=== PATIENT | male | born 1955 | race African-American/Black ===

== ENCOUNTER → 2017-09-07 | Outpatient (CLI) | payer OTHER | LOC: RAD 14:42 | DX: J18.9 Pneumonia, unspecified organism (principal); I51.7 Cardiomegaly; J98.11 Atelectasis ==

== ENCOUNTER → 2017-09-28 | Outpatient (CLI) | payer OTHER ==
[~2017-09-28] MED LIST: ALBUTEROL2.5 MG/31 INH; ASPIR 8181 MG PO; ATORVASTATIN CA40 MG PO; AUGMENTIN 875-1 EACH PO; CARVEDILOL3.125 MG PO; CARVEDILOL6.25 MG PO; CLOPIDOGREL75 MG PO; CORLANOR5 MG PO; COZAAR 50 MG TA50 M1 PO; ELIQUIS5 MG PO; FLOMAX0.4 MG PO; KLOR-CON 1010 MEQ PO; LASIX 20 MG TAB20 MG PO; LISINOPRIL5 MG PO; PACERONE 200 M200 M1 PO; PANTOPRAZOLE SO40 M1 PO; SINGULAIR 10 MG10 M1 PO; VENTOLIN HFA 1818 GM INH
--- NOTE | ~2017-09-28 | 2DMMODE ---
[facility] [place] [address] 2 D/M-MODE ECHOCARDIOGRAM Name: PIERCE GONZALEZ Room #: REG [facility]#: [id number] Admission: 09/28/17 Attend Phys: Herb Cooper MD Discharge: Date of : 53 Date of Service: 09/28/17 1541 Report #: [id number] THIS REPORT FOR: //name// APPROVED REPORT Study performed: 09/28/2017 14:21:40 EXAM: Comprehensive 2D, Doppler, and color-flow Echocardiogram Patient Location: Out-Patient Room #: Echo lab BSA: 2.33 HR: 106 bpm BP: 162/112 mmHg Other Information Study Quality: Good Indications Dyspnea Cardiomyopathy Hypertension/HDD 2D Dimensions RVDd: 45.10 mm LVEF(%): 29.71 (>50%) IVSd: 12.99 (7-11mm) LVOT Diam: 22.28 (18-24mm) LVDd: 59.00 mm PWd: 12.65 (7-11mm) Ascending Ao: 31.78 (22-36mm) LVDs: 50.63 (25-40mm) Aortic Root: 30.12 mm IVC: 30.00 mm Bills's LVEF: 29.71 % Volumes Left Atrial Volume (Systole) Single Plane 4CH: 102.66 mL Single Plane 2CH: 121.11 mL LA ESV Index: 55.00 mL/m2 Aortic Valve AoV Peak Edis.: 1.38 m/s AO Peak Gr.: 7.57 mmHg LVOT Max P.92 mmHg LVOT Max V: 0.99 m/s JILL Vmax: 2.80 cm2 Mitral Valve E/A Ratio: 6.8 [facility] [place] [address] 2 D/M-MODE ECHOCARDIOGRAM Name: PIERCE GONZALEZ Room #: REG [facility]#: [id number] Admission: 09/28/17 Attend Phys: Herb Cooper MD Discharge: Date of : 53 Date of Service: 09/28/17 1541 Report #: [id number] MV Decel. Time: 85.07 ms MV E Max Edis.: 1.56 m/s MV A Edis.: 0.23 m/s MV PHT: 24.67 ms IVRT: 58.82 ms Pulmonary Valve PV Peak Edis.: 0.74 m/s PV Peak Gr.: 2.19 mmHg OR End Vmax: 1.91 m/s Pulmonary Vein P Vein S: 0.45 m/s P Vein A: 0.12 m/s P Vein D: 0.52 m/s P Vein A Dur.: 53.6 msec P Vein S/D Ratio: 0.87 Tricuspid Valve TR Peak Edis.: 3.67 m/s TR Peak Gr.: 53.80 mmHg PA Pressure: 64.00 mmHg Left Ventricle Left ventricle is mildly dilated. Mild concentric left ventricular hypertrophy. Left ventricular ejection fraction is severely decreased. LVEF is 25-30%. Grade IV - fixed restrictive diastolic dysfunction. Right Ventricle Right ventricle is mildly dilated. Right ventricle is hypokinetic. Atria Left atrium is dilated. Right atrium is dilated. Aortic Valve The aortic valve is normal in structure. Trace aortic regurgitation. There is no aortic valvular stenosis. Mitral Valve The mitral valve is normal in structure. Mild to moderate mitral regurgitation. No evidence of mitral valve stenosis. Tricuspid Valve The tricuspid valve is normal in structure. There is mild tricuspid regurgitation. The right atrial pressure is estimated at mmHg. There is moderate-severe pulmonary hypertension. [address] [address] 2 D/M-MODE ECHOCARDIOGRAM Name: GONZALEZPIERCEMARYANN STAPLETON Room #: REG [facility]#: [id number] Admission: 09/28/17 Attend Phys: Herb Cooper MD Discharge: Date of : 53 Date of Service: 09/28/17 1541 Report #: [id number] Pulmonic Valve The pulmonary valve is normal in structure. Mild pulmonic regurgitation. Great Vessels The aortic root is normal in size. IVC is dilated and collapses <50% with inspiration. Pericardium There is no pericardial effusion. <Conclusion> Left ventricle is mildly dilated. Mild concentric left ventricular hypertrophy. Left ventricular ejection fraction is severely decreased. Grade IV - fixed restrictive diastolic dysfunction. Right ventricle is mildly dilated. Left atrium is dilated. Trace aortic regurgitation. Mild to moderate mitral regurgitation. There is moderate-severe pulmonary hypertension. There is no pericardial effusion. <ELECTRONICALLY SIGNED> By: Jevon Choi MD 09/28/17 1541 1541 1541 Jevon Choi MD /INF
== END ==
LOC: ULTRA 08:00 → RAD 08:00 → CV 08:00 → ULTRA 13:48 → EDSTATUS 14:52 → ULTRA 15:17
DX: R94.5 Abnormal results of liver function studies (principal); R06.09 Other forms of dyspnea; R60.9 Edema, unspecified; J45.909 Unspecified asthma, uncomplicated; R91.8 Other nonspecific abnormal finding of lung field

== ENCOUNTER 2017-10-03 15:13 | Inpatient (IN) | payer OTHER ==
[~2017-10-03] VITALS: Ht 172.7 cm; Wt 118.8 kg
[2017-10-03] VITALS (7 sets, daily range): BP systolic 122–156; BP diastolic 59–98
--- NOTE | ~2017-10-03 | 2DMMODE ---
[address] [address] 2 D/M-MODE ECHOCARDIOGRAM Name: GONZALEZPIERCE RAY Room #: 219-P [facility] IN M.R.#: [id number] Admission: 10/03/17 Attend Phys: Jose Manuel Ballard, Discharge: Date of : 53 Date of Service: 10/12/17 1410 Report #: [id number] THIS REPORT FOR: //name// APPROVED REPORT Study performed: 10/12/2017 13:22:00 EXAM: Comprehensive 2D, Doppler, and color-flow Echocardiogram Patient Location: Bedside Room #: 219 Status: routine BSA: 2.20 HR: 105 bpm Other Information Study Quality: Good Indications Congestive Heart Failure Cardiomyopathy Hypertension/HDD R^O thrombus Echo Enhancing Agent Indication: Rule out thrombus Agent(s) / Amount(s) Used: Optison 4 cc Left Ventricle Left ventricle is dilated. There is global hypokinesis of the left ventricle. Mild concentric left ventricular hypertrophy. Left ventricular ejection fraction is severely decreased. LVEF is 20-25%. Right Ventricle Right ventricle is dilated. Right ventricle is mildly hypokinetic. Atria Left atrium is dilated. Right atrium is dilated. Aortic Valve The aortic valve is normal in structure. Mitral Valve [address] [address] 2 D/M-MODE ECHOCARDIOGRAM Name: PIERCE GONZALEZ RAY Room #: 219-P ADM IN M.R.#: [id number] Admission: 10/03/17 Attend Phys: Jose Manuel Ballard, Discharge: Date of : 53 Date of Service: 10/12/17 141 Report #: [id number] The mitral valve is normal in structure. Tricuspid Valve The tricuspid valve is normal in structure. Pulmonic Valve The pulmonary valve is normal in structure. Great Vessels The aortic root is normal in size. IVC is not well visualized. Pericardium There is no pericardial effusion. <Conclusion> Left ventricle is dilated. Mild concentric left ventricular hypertrophy. Left ventricular ejection fraction is severely decreased. Right ventricle is dilated. Left atrium is dilated. The aortic valve is normal in structure. The mitral valve is normal in structure. There is no pericardial effusion. <ELECTRONICALLY SIGNED> By: Jevon Choi MD 10/12/171409 09 09 Jevon Choi MD /INF
--- NOTE | ~2017-10-03 | CATHLAB ---
[facility] [address] [address] INVASIVE PROCEDURE REPORT Name: URIEL GONZALEZ RAY Room #: 250-P [facility] IN .R.#: [id number] Admission: 10/03/17 Attend Phys: Jose Manuel Ballard, Discharge: Date of : 53 Date of Service: 10/11/17 0909 Report #: [id number] THIS REPORT FOR: //name// APPROVED REPORT Patient Details Patient Status: In-Patient Room #: The patient is a 62 year-old male Event Personnel Uriel Bee Nurses' Aide, Darius Vasques RN, Elizabeth Gonzalez Sandifer, David Monitor, Mireya Jasso RN progress man Performed Art Access - R femoral artery* Sony Access - R femoral vein BMS Place w/wo Plasty Single LAD [id number] BMSSINGLE [address] Primary Art Thrombect. Initial [id number] Right and Left Heart Cath w/Lt. Venogram 5046315 RLCWLV IABP Placement 6367004 IABPI Procedure Narrative The patient was brought emergently to the Cardiac Catheterization Laboratory and was prepped and draped in a sterile manner. The Right Groin^ was infiltrated with 1% Lidocaine subcutaneous anesthesia. A PINNACLE 6FR Sheath #[id number] sheath was inserted into the RFA 6FR.^. Coronary angiography was performed using coronary diagnostic catheters. The right coronary system was accessed and visualized with a JR 4 catheter. The left coronary system was accessed and visualized with a JL 4 catheter. The left ventricle was accessed and visualized with a Pigtail catheter. Fluoro Time: 15.21 minutes Dose: DAP 60480.00 cGycm2 2392 mGy Contrast Type and Amount: Visipaque 140 ml Hemodynamics The right atrial mean pressure is 27 mmHg. The right ventricular pressure is 60/15 mmHg. The pulmonary artery pressure is 53/37 mmHg with a mean of 44 mmHg. The mean pulmonary capillary wedge pressure is 40 mmHg. The aortic pressure is 83/57 mmHg with a mean of 69 mmHg. The left ventricular pressure is 84/22 mmHg with a mean of mmHg. The left ventricular end diastolic pressure is 31 mmHg. PCI Technique Lesion Anticoagulation was achieved with Heparin. Percutaneous coronary [facility] [address] [place] [address] INVASIVE PROCEDURE REPORT Name: URIEL GONZALEZ Room #: 250-P [facility] IN [facility]#: [id number] Admission: 10/03/17 Attend Phys: Jose Manuel Ballard, Discharge: Date of : 53 Date of Service: 10/11/17 0909 Report #: [id number] intervention was performed on the mid left anterior descending artery segment. The lesion stenosis prior to intervention was 100% with BRYAN flow. A LAUNCHER 6FR JL4.5 #[id number] Guide Catheter was used to engage the ostium. A Luge Wire .014 x 182CM #[id number] Interventional Guidewire was used to cross the lesion. BALLOON DILATION A Balloon catheter Sprinter OTW 2.75 x 20 #[id number] was inserted and inflated up to 10.00atm for 20seconds. Additional Inflation: 10.00atm for 12seconds. Additional Inflation: 12.00atm for 11seconds. STENT DEPLOYMENT A bare metal stent INTEGRITY RX 3.0 X 22 #[id number] was inserted and inflated up to 15.00atm for 20seconds. Conclusion #1 successful emergent PTCA stent bare metal of the proximal mid LAD occlusion with thrombectomy mechanical thrombectomy 0% residual and BRYAN grade 3 flow #2 circumflex OM is mildly diseased recently placed stent is patent with flow into the OM and valve filling of a distal OM circumflex which was not feeling on the intervention of yesterday. #3 successful placement of intra-aortic balloon pump for hypotension and hemodynamic support #4 Stock[place]-Aaron catheter placed for continuous monitoring purposes #5 moderately severe to severe global hypokinesis of the left ventricle EF 15-20% some contraction is noted the anterior base This case was initiated in cardiogenic shock emergently brought over from the ICU. Emergent intervention as described above with hemodynamic support was required with enteric balloon pump. Pressors including levo fed and addition of dopamine. Transfer back to the ICU and neck critical condition prognosis is extremely guarded. No urine output. Discussion and report of this procedure prognosis the patient discussed with the family. We'll continue ventilator and hemodynamic support. Will continue heparin and Integrilin on transfer to the ICU. Etiology of this clotting disorder is not readily apparent. Mid LAD had only mild disease on the cardiac catheterization of the prior day. Circumflex stent remained patent that was placed the prior day. With reconstitution of the distal OM circumflex branch. <ELECTRONICALLY SIGNED> By: Uriel Bee MD, FACC 10/11/17908 8 8 Uriel Bee MD, FACC /INF
--- NOTE | ~2017-10-03 | EKG ---
[address] [place] [address] ELECTROCARDIOGRAM REPORT Name: URIEL GONZALEZ Room #: 250-P ADM IN M.R.#: [id number] Admission: 10/03/17 Attend Phys: Jose Manuel Ballard MD Discharge: Date of : 53 Report #: [id number] THIS REPORT FOR: //name// [facility] Test Date: 2017-10-04 Test Time: 22:48:42 Pat Name: URIEL GONZALEZ Department: Room: 250 P Gender: M Medical Front Desk Coordinator: UNK : 1955 Requested By: Uriel Bee Order Number: [id number] MD: Jenaro Guillermo Measurements Intervals [place] Rate: 115 P: 217 SC: 95 QRS: 82 QRSD: 176 T: 263 QT: 390 QTc: 540 Interpretive Statements Sinus tachycardia Left bundle branch block Baseline wander in lead(s) I,II,aVR Compared to ECG 10/04/2017 06:17:19 No significant change was found Electronically Signed On 10-05-2017 15:54:36 CHIEF LIBRARIAN EXTENSION DEPARTMENT by Jenaro Guillermo [email or web address] <ELECTRONICALLY SIGNED> By: Jenaro Guillermo MD, [facility] 10/05/17 1554 2248 2248 Jenaro Guillermo MD, [facility] /EPI
--- NOTE | ~2017-10-03 | EKG ---
[address] [place] [address] ELECTROCARDIOGRAM REPORT Name: PIERCE GONZALEZ Room #: 170-8 ADM IN M.R.#: [id number] Admission: 10/03/17 Attend Phys: Jose Manuel Ballard MD Discharge: Date of : 53 Report #: [id number] THIS REPORT FOR: //name// [facility] ED Test Date: 2017-10-03 Test Time: 15:33:06 Pat Name: PIERCE GONZALEZ Department: Room: 170 Gender: M Vp Integration: SADAF : 1955 Requested By: Ella Smith Order Number: [id number] MD: Jenaro Guillermo Measurements Intervals [place] Rate: 98 P: 81 NC: 170 QRS: 107 QRSD: 170 T: 119 QT: 415 QTc: 530 Interpretive Statements Sinus rhythm Left bundle branch block Compared to ECG 02/10/1995 12:48:00 No significant change was found Electronically Signed On 10-03-2017 17:06:30 ASSEMBLY LINE LEADER by Jenaro Guillermo [email or web address] <ELECTRONICALLY SIGNED> By: Jenaro Guillermo MD, [facility] 10/03/17 1706 1533 153 Jenaro Guillermo MD, FAC /EPI
--- NOTE | ~2017-10-03 | EKG ---
[address] [place] [address] ELECTROCARDIOGRAM REPORT Name: URIEL GONZALEZ Room #: 250-P ADM IN M.R.#: [id number] Admission: 10/03/17 Attend Phys: Jose Manuel Ballard MD Discharge: Date of : 53 Report #: [id number] THIS REPORT FOR: //name// [facility] Test Date: 2017-10-04 Test Time: 22:49:30 Pat Name: URIEL GONZALEZ Department: Room: 250 P Gender: M Electric Shipyard Operator: UNK : 1955 Requested By: Uriel Bee Order Number: [id number] MD: Jenaro Guillermo Measurements Intervals [place] Rate: 113 P: 0 TX: 122 QRS: 83 QRSD: 169 T: 259 QT: 422 QTc: 579 Interpretive Statements Sinus tachycardia Left bundle branch block Compared to ECG 10/04/2017 06:17:19 No significant change was found Electronically Signed On 10-05-2017 15:54:56 PIANO MAKER by Jenaro Guillermo [email or web address] <ELECTRONICALLY SIGNED> By: Jenaro Guillermo MD, [facility] 10/05/17 1554 2249 2249 Jenaro Guillermo MD, [facility] /EPI
--- NOTE | ~2017-10-03 | HC ---
[facility] [place] [address] CONSULTATION Name: PIERCE GONZALEZ PIETER Room #: 208-[facility] IN .R.#: [id number] Admission: 10/03/17 Attend Phys: Jose Manuel Ballard MD Discharge: Date of : 53 Report #: [id number] THIS REPORT FOR: //name// CC: Jevon Ballard DATE OF SERVICE: 10/03/2017 INDICATION: Anginal equivalent. HISTORY OF PRESENT ILLNESS: This is a 62-year-old gentleman presenting with acute onset of left-sided upper back pain. He was recently diagnosed with cardiomyopathy, ejection fraction in the 25-30% range. He has class 2-3 heart failure symptoms. He also has a history of hypertension, edema, asthma and left bundle-branch block. He was scheduled for elective cardiac catheterization tomorrow morning. He had been in his usual state of health until he developed this discomfort. The ECG reveals a left bundle-branch block. However, the first troponin is positive at 1.59. He is diaphoretic and continues to have this discomfort localized to the left upper back area. He denies any chest pain, nausea, diarrhea or tingling. PAST MEDICAL HISTORY: History of hypertension, asthma, edema, left bundle-branch block newly diagnosed with cardiomyopathy. ALLERGIES: None. CURRENT MEDICATIONS: Include Entresto, albuterol inhaler, Lasix 20 mg daily, potassium, aspirin and carvedilol. SOCIAL HISTORY: Negative for tobacco use. FAMILY HISTORY: Negative for premature CAD. REVIEW OF SYSTEMS: A full 10-point review of systems performed. Only the pertinent positives and negatives as described in the HPI. PHYSICAL EXAMINATION: VITAL SIGNS: Blood pressure 118/70, heart rate is 90 beats per minute. GENERAL APPEARANCE: An overweight male in mild respiratory. HEAD AND EYES: Normocephalic. Sclerae are anicteric. ENT: Oral mucosa moist. NECK: Supple. LUNGS: Clear to auscultation. CARDIAC: Regular rate and rhythm, S1, S2 positive. ABDOMEN: Protuberant, soft. EXTREMITIES: No cyanosis, positive for edema. [facility] [address] [place] [address] CONSULTATION Name: LISAPIERCE BROOKLYN Room #: [address] [place] [address] IN M.R.#: [id number] Admission: 10/03/17 Attend Phys: Jose Manuel Ballard MD Discharge: Date of : 53 Report #: [id number] ECG reveals sinus rhythm, left bundle-branch block. LABORATORY VALUES: White count is 5.7, hemoglobin is 12.6. Sodium is 145, creatinine is 1.4. Troponin is 1.59. IMPRESSION AND PLAN: 1. Acute coronary syndrome, positive troponin. We will need an urgent cardiac catheterization in view of ongoing discomfort. 2. Cardiomyopathy, appears to be stable. Continue with medications. 3. Hypertension. Blood pressure is controlled on the current regimen. 4. Edema. Continue with diuretic therapy. 5. Asthma. Continue with inhalers. <ELECTRONICALLY SIGNED> By: Jevon Choi MD 10/04/17 0802 1653 0032 Jevon Choi MD /nt
--- NOTE | ~2017-10-03 | CATHLAB ---
[facility] [place] [address] INVASIVE PROCEDURE REPORT Name: LISAPIERCE PIETER Room #: 208-P ADM IN ..#: [id number] Admission: 10/03/17 Attend Phys: Jose Manuel Ballard, Discharge: Date of : 53 Date of Service: 10/04/17 0952 Report #: [id number] THIS REPORT FOR: //name// APPROVED REPORT Patient Details Patient Status: In-Patient Room #: The patient is a 62 year-old male Event Personnel Jevon Choi Account Support Associate, Aleksandar Macario RN RN, Darius Vasques RN, Elizabeth Gonzalez [place], Christine RTR Monitor, Ina Winkler CVT Monitor Procedures Performed Art Access - R femoral artery* Hemostasis w/ Mynx Left Heart Cath w/or w/o Coronaries [id number] [facility] w/wo Plasty Single CIRC 865567 41447 Initial Mod Sed Same Phys/QHP Gr5y 627742 90744 Mod Sed Same Phys/QHP Ea 585938 27494 Mod Sed Same Phys/QHP Ea 435877 Indication Non-STEMI , Dyspnea, Cardiomyopathy, Chest pain Risk Factors Hypercholesterolemia, Hypertension Previous Procedures/Diagnoses Previous CHF Procedure Narrative The Right Groin^ was infiltrated with 1% Lidocaine subcutaneous anesthesia. A PINNACLE 5FR Sheath #[id number] sheath was inserted into the RFA^. Coronary angiography was performed using coronary diagnostic catheters. The right coronary system was accessed and visualized with a 5FR AL1 #[id number] catheter. The left coronary system was accessed and visualized with a JL4 catheter. Left ventricular/Aortic Valve gradient assessed via catheter pullback. Closure device was deployed with a 6 Fr MYNXGRIP 6/7F #[id number]. The patient tolerated the procedure well and there were no complications associated with the procedure. There was no hematoma. Intraoperative Conscious Sedation Sedation start time: 17:03 Case end Time: 18:03 [facility] [address] [place] [address] INVASIVE PROCEDURE REPORT Name: LISAPIERCE PIETER Room #: 208-P [facility] IN [facility].#: [id number] Admission: 10/03/17 Attend Phys: Jose Manuel Ballard, Discharge: Date of : 53 Date of Service: 10/04/17 0952 Report #: [id number] Versed 1.5 mg Fluoro Time: 16.20 minutes Dose: DAP 79588.69 cGycm2 2679 mGy Contrast Type and Amount: Omnipaque 210 ml Coronary Angiography The patient's coronary anatomy is co- dominant. Diagnostic Cath Left Main Patent vessel, with no flow-limiting lesions. LAD Moderate to large size caliber vessel, traveling down the anterior wall and wrapping around the apex. There are no flow-limiting lesions in the LAD. Diagonal 1 Moderate size caliber vessel, with no flow-limiting lesions. Circumflex Codominant vessel, has a severe obstruction in the proximal segment, at least 95%. OM1 Patent vessel, with no flow-limiting lesions. 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 There is only mild disease in the proximal segment, 20%. R PDA Patent vessel, with no flow-limiting lesions. Left Ventriculography Left Ventriculography was not performed. Ejection Fraction was 25-30% based off patient's Echocardiogram. An LVEDP was measured, there is no gradient across the outflow tract. Hemodynamics The aortic pressure is 127/85 mmHg with a mean of 108 mmHg. The left ventricular pressure is 127/27 mmHg with a mean of mmHg. The left ventricular end diastolic pressure is 43 mmHg. PCI Technique Lesion Anticoagulation was achieved with Angiomax. Patient was preloaded with Brillinta. Percutaneous coronary intervention was performed on the proximal circumflex artery segment. The lesion stenosis prior to intervention was 99% with BRYAN 2 flow. A LAUNCHER 6FR JL4.5 #[id number] Guide Catheter was used to engage the LCA ostium. A Luge Wire .014 X 182CM #[id number] Interventional Guidewire was used to cross the lesion. BALLOON DILATION A Balloon catheter Euphora RX 3.0 x 10 #[id number] was inserted and inflated up to 8.00atm for 10seconds. Additional Inflation: 8.00atm [facility] [address] [place] [address] INVASIVE PROCEDURE REPORT Name: PIERCE GONZALEZ Room #: 208-P [facility] IN .R.#: [id number] Admission: 10/03/17 Attend Phys: Jose Manuel Ballard, Discharge: Date of : 53 Date of Service: 01/951 Report #: [id number] for 13seconds. STENT DEPLOYMENT A drug-eluting stent RESOLUTE RX 3.5 X 15 #[id number] was inserted and inflated up to 10.00atm for 10seconds. Additional Inflation: 10.00atm for 3seconds. Additional Inflation: 14.00atm for 17seconds. Conclusion 1. Successful insertion of a drug-eluting stent into the proximal segment of the left circumflex artery. 2. 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 3. Mixed type cardiomyopathy, severe. 4. Recommend dual antiplatelet therapy. <ELECTRONICALLY SIGNED> By: Jevon Choi MD 10/04/1752 1 1 Jevon Choi MD /INF
--- NOTE | ~2017-10-03 | EKG ---
[address] [place] [address] ELECTROCARDIOGRAM REPORT Name: URIEL GONZALEZ Room #: 250-P ADM IN M.R.#: [id number] Admission: 10/03/17 Attend Phys: Jose Manuel Ballard MD Discharge: Date of : 53 Report #: [id number] THIS REPORT FOR: //name// [facility] Test Date: 2017-10-05 Test Time: 06:23:57 Pat Name: URIEL GONZALEZ Department: Room: 250 P Gender: M Clinical Team Lead: PARMJIT : 1955 Requested By: Uriel Bee Order Number: [id number] MD: Jenaro Guillermo Measurements Intervals [place] Rate: 84 P: 75 [place]: 177 QRS: 106 QRSD: 156 T: 98 QT: 445 QTc: 527 Interpretive Statements Sinus rhythm Atrial premature complex Left bundle branch block Anterolateral infarct, age indeterminate Compared to ECG 10/04/2017 06:17:19 Atrial premature complex(es) now present Primary ST and T wave abnormality no longer present Electronically Signed On 10-05-2017 16:01:03 MIXING ENGINEER by Jenaro Guillermo [email or web address] <ELECTRONICALLY SIGNED> By: Jenaro Guillermo MD, [facility] 10/05/17 1601 0623 0623 Jenaro Guillermo MD, [facility] /EPI
--- NOTE | ~2017-10-03 | EKG ---
[place] [address] [facility] [place] [address] ELECTROCARDIOGRAM REPORT Name: URIEL GONZALEZ Room #: 250-P ADM IN M.R.#: [id number] Admission: 10/03/17 Attend Phys: Jose Manuel Ballard MD Discharge: Date of : 53 Report #: [id number] THIS REPORT FOR: //name// [facility] Test Date: 2017-10-05 Test Time: 01:19:49 Pat Name: URIEL GONZALEZ Department: Room: 250 P Gender: M Tool Designer: sandeep : 1955 Requested By: Uriel Bee Order Number: [id number] MD: Jenaro Guillermo Measurements Intervals [place] Rate: 101 P: 77 VA: 138 QRS: 80 QRSD: 163 T: -27 QT: 414 QTc: 537 Interpretive Statements Sinus tachycardia Left bundle branch block Primary ST and T wave abnormality, consider injury pattern Compared to ECG 10/04/2017 06:17:19 Myocardial infarct finding now present Electronically Signed On 10-05-2017 15:58:39 INTEGRATION ANALYST by Jenaro Guillermo [email or web address] <ELECTRONICALLY SIGNED> By: Jenaro Guillermo MD, [facility] 10/05/17 1558 0119 0119 Jenaro Guillermo MD, [facility] /EPI
--- NOTE | ~2017-10-03 | EKG ---
[address] [place] [address] ELECTROCARDIOGRAM REPORT Name: PIERCE GONZALEZ Room #: 208-P ADM IN M.R.#: [id number] Admission: 10/03/17 Attend Phys: Jose Manuel Ballard MD Discharge: Date of : 53 Report #: [id number] THIS REPORT FOR: //name// [facility] Test Date: 2017-10-03 Test Time: 19:10:25 Pat Name: PIERCE GONZALEZ Department: Room: 208 P Gender: M Clearing Supervisor: Kayleigh BERMUDEZ : 1955 Requested By: Jevon Choi Order Number: [id number] MD: Roland Smith Measurements Intervals [place] Rate: 102 P: 69 [place]: 157 QRS: 74 QRSD: 159 T: 265 QT: 412 QTc: 537 Interpretive Statements Sinus tachycardia Probable left atrial enlargement IVCD, consider atypical LBBB Compared to ECG 10/03/2017 15:33:06 Sinus rhythm no longer present Electronically Signed On 10-04-2017 7:45:41 HIGH SCHOOL FOREIGN LANGUAGE TEACHER by Roland Smith [email or web address] <ELECTRONICALLY SIGNED> By: Roland Smith MD 10/04/17 0745 09 09 Roland Smith MD /EPI
--- NOTE | ~2017-10-03 | HC ---
[facility] [place] [address] CONSULTATION Name: PIERCE GONZALEZ PIETER Room #: 219-P [facility] IN M.R.#: [id number] Admission: 10/03/17 Attend Phys: Jose Manuel Ballard MD Discharge: 10/15/17 Date of : 53 Report #: [id number] THIS REPORT FOR: //name// CC: Jevon Ballard DATE OF SERVICE: 10/11/2017 HISTORY OF PRESENT ILLNESS: The patient is a 62-year-old -[place] male who was noted to have shortness of breath and some left upper back pain. He was actually diagnosed with a non-ST elevation CO. He underwent stenting of the LAD and circumflex. His course has been complicated by a cardiac arrest on 10/04/2016 with ventricular fibrillation. He was intubated, noted to have acute respiratory failure, acute renal failure. He needed to have a flexible cystoscopy to place a urinary catheter. He has had UTI with enterococcus and a GI bleed with p.o. Protonix. He had cardiogenic shock. He continues in the ICU and is gradually improving. We are seeing him in rehabilitation medicine consultation. PAST MEDICAL HISTORY: Asthma and coronary artery disease. HABITS: Former tobacco abuse, quit 8 years ago. No history of alcohol abuse. MEDICATIONS: Please see the full medication listing. ALLERGIES: No known drug allergies. SOCIAL HISTORY: Lives in a house with his . 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 There are no steps into the house. REVIEW OF SYSTEMS: Did not offer any current complaints of chest pain, shortness of breath or abdominal discomfort. No focal extremity pain complaints. PHYSICAL EXAMINATION: GENERAL: A 62-year-old -[place]ian male in no obvious distress. VITAL SIGNS: Last recorded temperature is 98.5, pulse 103, respirations 19, blood pressure 95/66. NEUROLOGIC: He is a pleasant, overweight -[place]ian male. Facies appeared symmetric. He did not appear to recognize me at first, but then recognized me later. EOMs are full. He has a functional range of motion of both upper extremities with strength grade 4-/5. DTRs are trace to 1. He has the indwelling Valdez catheter. Lower extremities, no focal calf swelling, functional range of motion, strength is grade 3+/5. DTRs are trace to 1. He was sit to stand, min assist, gait 100 feet contact guard with a front-wheeled [facility] [address] [place] [address] CONSULTATION Name: PIERCE GONZALEZ [place] Room #: 219-P [facility] IN .R.#: [id number] Admission: 10/03/17 Attend Phys: Jose Manuel Ballard MD Discharge: 10/15/17 Date of : 53 Report #: [id number] walker. ASSESSMENT: A 62-year-old -Belarusian male with the following problems: 1. ST elevation myocardial infarction, status post stent to left anterior descending and circumflex. 2. Status post cardiac arrest on 10/04/2017, ventricular fibrillation. 3. Acute respiratory failure, improved. 4. Acute renal failure, improved. 5. Shock liver. 6. Cardiogenic shock. 7. Cardiomyopathy. 8. Urinary retention with flexible cystoscopy, to place urinary catheter. 9. Question if there is a hypoxic encephalopathic component. PLAN: Therapies are continuing to work with him. Agree he certainly could be a candidate for a short acute in-hospital inpatient rehabilitation stay as he further medically stabilizes. At this point, we will continue to follow along with you regarding his rehab therapy needs. <ELECTRONICALLY SIGNED> By: Mandeep Guerra MD 10/17/17 1226 1552 0048 Mandeep Guerra MD /[facility]
--- NOTE | ~2017-10-03 | HC ---
[facility] [place] [address] CONSULTATION Name: PIERCE GONZALEZ PIETER Room #: 250-P [facility] IN M.R.#: [id number] Admission: 10/03/17 Attend Phys: Jose Manuel Ballard MD Discharge: Date of : 53 Report #: [id number] THIS REPORT FOR: //name// CC: Jevon Ballrad REASON FOR CONSULTATION: Acute kidney injury. REASON FOR THE PRESENTATION: Chest pain. HISTORY OF PRESENT ILLNESS: A 62-year-old with known advanced cardiomyopathy with an ejection fraction of around 20%. He is also known to have coronary artery disease. No known previous kidney problems. He presented to Dr. Ballard's office on Tuesday reporting that he has not been feeling well and was taken to the Emergency Room. Incidentally, the patient was supposed to have an angiogram on Tuesday. He reported to the Emergency Room that he has been having some issues with dyspnea on exertion. He also reported mild central chest pain with radiation to the upper back area starting about 20 minutes before his presentation to the Emergency Room. No prior similar episode. He was diaphoretic on his presentation. Initial troponin was 1.59 with a creatinine of 1.4. He was admitted to the CCU for further evaluation and management. Accordingly, he was managed as a case of coronary artery disease and was supposed to go for the landscaping and groundskeeping laborer on Tuesday. Unfortunately, the patient's condition deteriorated. He developed lactic acidosis and troponin peaked at more than 200. Code blue event was initiated. The patient was found in a cardiac arrest. He was shocked for VFib and an ACLS protocol was initiated. Three rounds of epinephrine were given before ROSC. Amiodarone was also given. He was intubated. The patient was taken to the landscaping and groundskeeping laborer and the details of the cath labs are documented. He did have a drug-eluting stent into the proximal left circumflex and the patient was then transferred to the ICU with dual antiplatelet therapy; however, his creatinine has gone up and he quit making urine mandating a renal consultation. PAST MEDICAL HISTORY: 1. Coronary artery disease. 2. Hypertension. 3. Cardiomyopathy with ejection fractions of around 25%. ALLERGIES: None. MEDICATIONS: Entresto, albuterol, Lasix, aspirin, carvedilol. SOCIAL HISTORY: No drug or alcohol abuse. 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 FAMILY HISTORY: No known coronary artery disease. [facility] [address] [place] [address] CONSULTATION Name: PIERCE GONZALEZ PIETER Room #: 250-P [facility] IN [facility]#: [id number] Admission: 10/03/17 Attend Phys: Jose Manuel Ballard MD Discharge: Date of : 53 Report #: [id number] REVIEW OF SYSTEMS: Unobtainable given the patient's mental status. PHYSICAL EXAMINATION: GENERAL: The patient is currently intubated with intraaortic balloon pump. VITAL SIGNS: Blood pressure 115/67, pulse rate 87. HEAD AND NECK: ET tube in place. CHEST: Decreased air entry bilaterally with crackles. CARDIOVASCULAR: Regular with no rub. ABDOMEN: Soft, nontender. LOWER EXTREMITIES: +1 edema. LABORATORY DATA: Reviewed, pH 7.4, pCO2 of 36. Lactate is down to 2.2. It peaked at 6. Troponin is greater than 200. White blood cell count 10.7, hemoglobin 12.5, platelet 298. Sodium 141, potassium 3.9, BUN 36, creatinine 2.5, glucose 185. IMAGING: Chest x-ray reviewed, mild pulmonary congestion. ASSESSMENT, IMPRESSION AND PLAN: 1. Status post cardiac arrest. 2. Acute kidney injury. 3. Cardiomyopathy. 4. Status post intubation for respiratory failure. 5. Lactic acidosis. 6. Acute coronary event with drug-eluting stent placement. The patient is in acute tubular necrosis due to his event. I will initiate appropriate workup. 1. Continue with the aggressive hemodynamic support including pressors and intraaortic balloon pump. He is currently intubated with no issues of fluid overload. His electrolytes are okay for now; however, I will need to check stat labs. 2. Lactate and blood gas have normalized. 3. IV fluids. 4. Lasix drip. 5. Usual treatment for his acute coronary event. 6. If there is no improvement in his parameters and he is still not making urine, I will initiate CRRT in the next 24 hours. <ELECTRONICALLY SIGNED> By: Darrell Hurd MD 10/10/17 0832 1011 1115 Darrell Hurd MD /nt
--- NOTE | ~2017-10-03 | EKG ---
[address] [address] ELECTROCARDIOGRAM REPORT Name: GONZALEZPIERCEMARYANN STAPLETON Room #: 250-P ADM IN M.R.#: [id number] Admission: 10/03/17 Attend Phys: Jose Manuel Ballard MD Discharge: Date of : 53 Report #: [id number] THIS REPORT FOR: //name// [facility] Test Date: 2017-10-11 Test Time: 09:33:54 Pat Name: PIERCE GONZALEZ Department: Room: 250 P Gender: M Sanitation Lead: PARMJIT : 1955 Requested By: Jevon Choi Order Number: [id number] MD: Roland Smith Measurements Intervals [place] Rate: 103 P: 29 VA: 142 QRS: 49 QRSD: 170 T: -24 QT: 412 QTc: 540 Interpretive Statements Sinus tachycardia Probable left atrial enlargement LBBB Electronically Signed On 10-11-2017 15:15:24 AUTOMATIC SPINNING LATHE OPERATOR by Roland Smith [email or web address] <ELECTRONICALLY SIGNED> By: Roland Smith MD 10/11/17 1515 0933 2 MD ANN Perez
--- NOTE | ~2017-10-03 | HC ---
[facility] [place] [address] CONSULTATION Name: PIERCE GONZALEZ Room #: 250-P [facility] IN M.R.#: [id number] Admission: 10/03/17 Attend Phys: Jose Manuel Ballard MD Discharge: Date of : 53 Report #: [id number] THIS REPORT FOR: //name// CC: Jevon Ballard MD DATE OF SERVICE: 10/05/2017 REFERRING PROVIDER: Jose Manuel Ballard MD REASON FOR CONSULTATION: Respiratory failure. CHIEF COMPLAINT: Chest pain, cardiopulmonary arrest. HISTORY OF PRESENT ILLNESS: Our group was asked to see the patient in consultation while hospitalized in [facility], discussed with nursing extensively. He is a 62-year-old male, unable to give any history due to being on mechanical ventilatory support at this time, presented on 10/03 with complaints of upper back and chest pain, underwent a procedure with drug-eluting stent placed in the proximal left circumflex artery. He had an ejection fraction between 25%-30%. Subsequently, last night developed ventricular tachycardia, ventricular fibrillation, required CPR and defibrillation x 3, was taken to the labor contractor where a stent to the LAD was placed. The patient has been on mechanical ventilatory support since that time and sedated. ALLERGIES: None known. PAST MEDICAL HISTORY: 1. Coronary artery disease. 2. History of possible asthma by report. 3. Hypertension. 4. Cardiomyopathy. OUTPATIENT MEDICATIONS: Included Entresto, albuterol, Lasix, potassium, aspirin and carvedilol. SOCIAL HISTORY: Unobtainable. FAMILY HISTORY: Unobtainable. REVIEW OF SYSTEMS: Unobtainable due to his current neurologic status. PHYSICAL EXAMINATION: VITAL SIGNS: Afebrile, pulse 80s, respiratory rate 16, blood pressure 115/67. [facility] [address] [place] [address] CONSULTATION Name: PIERCE GONZALEZ HAZELHURST Room #: 250-P [facility] IN ..#: [id number] Admission: 10/03/17 Attend Phys: Jose Manuel Ballard MD Discharge: Date of : 53 Report #: [id number] GENERAL: This is an obese, middle-aged black male, unresponsive. EENT: Reveals pupils equal, round, react to light. No scleral icterus. Endotracheal tube in place. LUNGS: Relatively clear. CARDIOVASCULAR: Heart was regular. No murmurs noted. ABDOMEN: Obese, soft, nontender, no masses. EXTREMITIES: Revealed right femoral arterial sheath with balloon pump and [place] catheter in place with 1+ regular and left lower extremity edema. LABORATORY DATA: Sodium 141, potassium 3.9, chloride 106, bicarbonate 26, BUN 36, creatinine 2.5, glucose 185. Troponin greater than 200. Arterial blood gas on assist control, tidal volume of 600, PEEP of 5, FiO2 100%, rate of 16, revealed pH 7.45, pCO2 of 36, pO2 500, bicarbonate 24. INR is 1.1. Chest x-ray shows [place]-A[place] catheter in good position in the left pulmonary artery. Minimal basilar atelectasis and pulmonary edema noted. Lungs reasonably clear on chest radiograph. IMPRESSION: 1. Status post cardiac arrest, associated ventricular fibrillation, ventricular tachycardia. 2. Coronary artery disease, status post stent to left anterior descending and circumflex. 3. Respiratory failure due to the above. 4. Possible history of asthma. SUGGESTIONS: 1. Albuterol p.r.n. 2. No ventilator weaning until the patient is alert neurologically. 3. Hypothermia protocol on hold due to the patient's hemodynamic instability and hypotension, currently requiring pressors with Levophed, dopamine as well as being coagulopathic at this time. 4. Follow up arterial blood gas after decreasing minute volume settings on the ventilator. 5. Additional recommendations to follow. Discussed with nursing at the bedside. <ELECTRONICALLY SIGNED> By: Fam Olson MD 10/05/17 1818 0929 1014 Fam Olson MD /nt
--- NOTE | ~2017-10-03 | EKG ---
[address] [place] [place] [address] ELECTROCARDIOGRAM REPORT Name: GONZALEZPIERCEMARYANN STAPLETON Room #: 170-8 ADM IN M.R.#: [id number] Admission: 10/03/17 Attend Phys: Jose Manuel Ballard MD Discharge: Date of : 53 Report #: [id number] THIS REPORT FOR: //name// [facility] ED Test Date: 2017-10-03 Test Time: 15:14:45 Pat Name: PIERCE GONZALEZ Department: Room: 170 Gender: M Managed Services Sales Consultant: NICK : 1955 Requested By: Ella Smith Order Number: [id number] MD: Jenaro Guillermo Measurements Intervals [place] Rate: 94 P: 72 MS: 173 QRS: 71 QRSD: 171 T: 146 QT: 397 QTc: 497 Interpretive Statements Sinus rhythm Left bundle branch block Compared to ECG 02/10/1995 12:48:00 Left bundle branch block is now present Electronically Signed On 10-03-2017 17:02:38 FUNCTIONAL SKILLS TUTOR by Jenaro Guillermo [email or web address] <ELECTRONICALLY SIGNED> By: Jenaro Guillermo MD, [facility] 10/03/171701 1514 1514 Jenaro Guillermo MD, [facility] /EPI
--- NOTE | ~2017-10-03 | EKG ---
[address] [place] [address] ELECTROCARDIOGRAM REPORT Name: URIEL GONZALEZ Room #: 250-P ADM IN M.R.#: [id number] Admission: 10/03/17 Attend Phys: Jose Manuel Ballard MD Discharge: Date of : 53 Report #: [id number] THIS REPORT FOR: //name// [facility] Test Date: 2017-10-04 Test Time: 22:57:04 Pat Name: URIEL GONZALEZ Department: Room: 250 P Gender: M Drop Hammer Setter Up: UNK : 1955 Requested By: Uriel Bee Order Number: [id number] MD: Jenaro Guillermo Measurements Intervals [place] Rate: 106 P: 0 [place]: 122 QRS: 87 QRSD: 167 T: 264 QT: 458 QTc: 609 Interpretive Statements Sinus tachycardia Left bundle branch block Compared to ECG 10/04/2017 06:17:19 No significant change was found Electronically Signed On 10-05-2017 15:55:43 WELDING MACHINE OPERATOR GAS by Jenaro Guillermo [email or web address] <ELECTRONICALLY SIGNED> By: Jenaro Guillermo MD, [facility] 10/05/17 1555 56 56 Jenaro Guillermo MD, [facility] /EPI
--- NOTE | ~2017-10-03 | EKG ---
[address] [place] [address] ELECTROCARDIOGRAM REPORT Name: PIERCE GONZALEZ Room #: 208-P ADM IN M.R.#: [id number] Admission: 10/03/17 Attend Phys: Jose Manuel Ballard MD Discharge: Date of : 53 Report #: [id number] THIS REPORT FOR: //name// [facility] Test Date: 2017-10-04 Test Time: 06:17:19 Pat Name: PIERCE GONZALEZ Department: Room: 208 P Gender: M Performance Improvement Manager: PARMJIT : 1955 Requested By: Jevon Choi Order Number: [id number] MD: Roland Smith Measurements Intervals [place] Rate: 101 P: 67 [place]: 169 QRS: 65 QRSD: 158 T: 265 QT: 419 QTc: 544 Interpretive Statements Sinus tachycardia Probable left atrial enlargement IVCD, consider atypical LBBB Compared to ECG 10/03/2017 15:33:06 Sinus rhythm no longer present Electronically Signed On 10-04-2017 7:49:33 PIPE FITTER SUPERVISOR by Roland Smith [email or web address] <ELECTRONICALLY SIGNED> By: Roland Smith MD 10/04/17 0749 6 6 Roland Smith MD /[facility]
[2017-10-03 15:33] LABS: ABSOLUTE NEUTROPHILS 3.3 thou/uL (1.4-8.2); HEMOGLOBIN 12.6 gm/dL (14.0-18.0); LYMPHOCYTES 30.9 % (24.0-44.0); MCHC 33.1 g/dL (28.0-37.0); MCV 93.5 fL (80.0-100.0); MONOCYTES 8.6 % (1.0-8.0); PLATELET COUNT 298 thou/uL (150-400); POLYS 58.5 % (36.0-66.0); RBC 4.07 mil/uL (4.50-6.00); RDW 14.6 % (10.5-14.5); WBC 5.7 thou/uL (4.0-11.0)
[2017-10-03 15:50] LABS: CREATININE 1.4 mg/dL (0.7-1.3); POTASSIUM 4.4 mmol/L (3.5-5.1)
[2017-10-03 16:01] LABS: TROPONIN-I 1.59 ng/mL (<0.06)
[2017-10-03 16:12] LABS: APTT 24.6 Seconds (24.5-32.8); PROTIME 10.7 Seconds (9.3-11.4)
[2017-10-03 16:23] LABS: ALBUMIN 2.8 g/dL (3.4-5.0); DIRECT BILIRUBIN 0.2 mg/dL (<0.1-0.3); TOTAL BILIRUBIN 0.5 mg/dL (<0.1-1.0); TOTAL PROTEIN 6.1 g/dL (6.4-8.2)
[2017-10-04] VITALS (7 sets, daily range): BP systolic 117–155; BP diastolic 42–112
[2017-10-04] MEDS ORDERED: LISINOPRIL5 MG PO (01:31)
[2017-10-04 03:15] LABS: HEMATOCRIT 43.3 % (42.0-52.0); HEMOGLOBIN 13.9 gm/dL (14.0-18.0); MCH 30.6 pg (26.0-34.0); MCHC 32.1 g/dL (28.0-37.0); MCV 95.4 fL (80.0-100.0); RBC 4.54 mil/uL (4.50-6.00); RDW 14.9 % (10.5-14.5); WBC 6.5 thou/uL (4.0-11.0)
[2017-10-04 03:35] LABS: ANION GAP 10 mmol/L (7-16); BUN 27 mg/dL (7-18); CALCIUM 8.7 mg/dL (8.5-10.1); CHLORIDE 105 mmol/L (98-107); CO2 24 mmol/L (21-32); CREATININE 1.4 mg/dL (0.7-1.3); GLUCOSE 193 mg/dL (74-106); POTASSIUM 4.1 mmol/L (3.5-5.1); SODIUM 139 mmol/L (136-145)
[2017-10-04 03:52] LABS: TROPONIN-I > 200.00 ng/mL (<0.06)
[2017-10-04] MEDS ORDERED: CARVEDILOL3.125 MG PO (03:59)
[2017-10-04] MEDS ORDERED: LASIX 20 MG TAB20 MG PO (04:00)
[2017-10-04] MEDS ORDERED: KLOR-CON 1010 MEQ PO (04:00)
[2017-10-04] MEDS ORDERED: SINGULAIR 10 MG10 M1 PO (04:01)
[2017-10-04] MEDS ORDERED: ASPIR 8181 MG PO (04:02)
[2017-10-04] MEDS ORDERED: ALBUTEROL2.5 MG/31 INH (04:03)
[2017-10-04] MEDS ORDERED: VENTOLIN HFA 1818 GM INH (04:04)
[2017-10-04 23:08] LABS: HEMATOCRIT 41.1 % (42.0-52.0); HEMOGLOBIN 13.2 gm/dL (14.0-18.0); MCH 30.9 pg (26.0-34.0); MCHC 32.2 g/dL (28.0-37.0); MCV 95.9 fL (80.0-100.0); RBC 4.29 mil/uL (4.50-6.00); RDW 15.2 % (10.5-14.5); WBC 9.5 thou/uL (4.0-11.0)
[2017-10-04 23:13] LABS: POTASSIUM 4.8 mmol/L (3.5-5.1)
[2017-10-05] VITALS (40 sets, daily range): BP systolic 70–148; BP diastolic 33–104
[2017-10-05 00:13] LABS: BE(vivo) -1.8 mmol/L (-2 to +3); HCO3 25.8 mmol/L (22.0-26.0); PCO2 55.9 mmHg (35.0-45.0); PO2 95.7 mmHg (80.0-100.0); pH 7.282 (7.360-7.450); sO2 96.4 % (92.0-98.0)
[2017-10-05 00:36] LABS: APTT 25.2 Seconds (24.5-32.8); FIBRINOGEN 297.5 mg/dL (210-360); INR 1.1; PROTIME 11.1 Seconds (9.3-11.4)
[2017-10-05 04:34] LABS: BE(vivo) 0.7 mmol/L (-2 to +3); HCO3 24.4 mmol/L (22.0-26.0); PCO2 36.2 mmHg (35.0-45.0); PO2 499.6 mmHg (80.0-100.0); pH 7.447 (7.360-7.450); sO2 99.9 % (92.0-98.0)
[2017-10-05 04:59] LABS: ABSOLUTE NEUTROPHILS 9.4 thou/uL (1.4-8.2); BASOPHILS 0.3 % (0.0-2.0); HEMATOCRIT 37.9 % (42.0-52.0); HEMOGLOBIN 12.5 gm/dL (14.0-18.0); LYMPHOCYTES 4.7 % (24.0-44.0); MCV 93.9 fL (80.0-100.0); PLATELET COUNT 298 thou/uL (150-400); RBC 4.03 mil/uL (4.50-6.00); WBC 10.7 thou/uL (4.0-11.0)
[2017-10-05 05:09] LABS: ANION GAP 9 mmol/L (7-16); BUN 36 mg/dL (7-18); CALCIUM 8.1 mg/dL (8.5-10.1); CHLORIDE 106 mmol/L (98-107); CO2 26 mmol/L (21-32); GLUCOSE 185 mg/dL (74-106); MAGNESIUM 2.6 mg/dL (1.8-2.4); PHOSPHORUS 4.4 mg/dL (2.5-4.9); POTASSIUM 3.9 mmol/L (3.5-5.1); SODIUM 141 mmol/L (136-145)
[2017-10-05 05:14] LABS: CREATININE 2.5 mg/dL (0.7-1.3)
[2017-10-05 05:16] LABS: TROPONIN-I > 200.00 ng/mL (<0.06)
[2017-10-05 06:14] LABS: INR 1.1; PROTIME 11.2 Seconds (9.3-11.4)
[2017-10-05 10:41] LABS: CALCIUM 8.1 mg/dL (8.5-10.1); CREATININE 2.6 mg/dL (0.7-1.3); POTASSIUM 3.8 mmol/L (3.5-5.1)
[2017-10-05 10:52] LABS: ALBUMIN 2.7 g/dL (3.4-5.0); TOTAL BILIRUBIN 0.8 mg/dL (<0.1-1.0); TOTAL PROTEIN 6.1 g/dL (6.4-8.2)
[2017-10-05 13:04] LABS: HEMATOCRIT 38.7 % (42.0-52.0); HEMOGLOBIN 12.8 gm/dL (14.0-18.0); MCH 30.9 pg (26.0-34.0); MCHC 33.1 g/dL (28.0-37.0); MCV 93.5 fL (80.0-100.0); RBC 4.14 mil/uL (4.50-6.00); RDW 15.1 % (10.5-14.5); WBC 9.6 thou/uL (4.0-11.0)
[2017-10-05 13:19] LABS: INR 1.1; PROTIME 10.9 Seconds (9.3-11.4)
[2017-10-05 13:48] LABS: TROPONIN-I > 200.00 ng/mL (<0.06)
[2017-10-05 13:54] LABS: ANION GAP 9 mmol/L (7-16); BUN 44 mg/dL (7-18); CALCIUM 8.6 mg/dL (8.5-10.1); CHLORIDE 105 mmol/L (98-107); CO2 26 mmol/L (21-32); CREATININE 3.1 mg/dL (0.7-1.3); GLUCOSE 149 mg/dL (74-106); MAGNESIUM 2.6 mg/dL (1.8-2.4); PHOSPHORUS 5.8 mg/dL (2.5-4.9); POTASSIUM 4.1 mmol/L (3.5-5.1); SODIUM 140 mmol/L (136-145)
[2017-10-06] VITALS (24 sets, daily range): BP systolic 122–160; BP diastolic 65–92
[2017-10-06 05:04] LABS: ABSOLUTE NEUTROPHILS 8.8 thou/uL (1.4-8.2); BASOPHILS 0.2 % (0.0-2.0); HEMATOCRIT 39.9 % (42.0-52.0); HEMOGLOBIN 13.1 gm/dL (14.0-18.0); LYMPHOCYTES 5.5 % (24.0-44.0); MCHC 32.8 g/dL (28.0-37.0); MCV 94.5 fL (80.0-100.0); MONOCYTES 9.9 % (1.0-8.0); PLATELET COUNT 270 thou/uL (150-400); POLYS 84.4 % (36.0-66.0); RBC 4.23 mil/uL (4.50-6.00); WBC 10.4 thou/uL (4.0-11.0)
[2017-10-06 05:19] LABS: BE(vivo) -2.7 mmol/L (-2 to +3); HCO3 22.3 mmol/L (22.0-26.0); PCO2 39.6 mmHg (35.0-45.0); PO2 97.5 mmHg (80.0-100.0); pH 7.369 (7.360-7.450); sO2 97.3 % (92.0-98.0)
[2017-10-06 05:27] LABS: ALBUMIN 2.6 g/dL (3.4-5.0); CALCIUM 8.1 mg/dL (8.5-10.1); MAGNESIUM 2.5 mg/dL (1.8-2.4); PHOSPHORUS 8.4 mg/dL (2.5-4.9); POTASSIUM 4.8 mmol/L (3.5-5.1); TOTAL BILIRUBIN 0.6 mg/dL (<0.1-1.0); TOTAL PROTEIN 6.5 g/dL (6.4-8.2)
[2017-10-06 05:30] LABS: CREATININE 5.1 mg/dL (0.7-1.3)
[2017-10-07] VITALS (32 sets, daily range): BP systolic 86–151; BP diastolic 64–89
[2017-10-07 05:26] LABS: BE(vivo) 4.9 mmol/L (-2 to +3); HCO3 30.3 mmol/L (22.0-26.0); PCO2 47.6 mmHg (35.0-45.0); pH 7.422 (7.360-7.450)
[2017-10-07 05:46] LABS: ALBUMIN 2.3 g/dL (3.4-5.0); CALCIUM 8.4 mg/dL (8.5-10.1); POTASSIUM 3.5 mmol/L (3.5-5.1); TOTAL BILIRUBIN 0.6 mg/dL (<0.1-1.0); TOTAL PROTEIN 6.5 g/dL (6.4-8.2)
[2017-10-07 06:47] LABS: HEMATOCRIT 39.2 % (42.0-52.0); MCH 30.6 pg (26.0-34.0); MCHC 33.2 g/dL (28.0-37.0); MCV 92.3 fL (80.0-100.0); RBC 4.24 mil/uL (4.50-6.00); RDW 15.1 % (10.5-14.5); WBC 8.4 thou/uL (4.0-11.0)
[2017-10-07 20:29] LABS: MAGNESIUM 1.8 mg/dL (1.8-2.4); POTASSIUM 3.5 mmol/L (3.5-5.1)
[2017-10-08] VITALS (79 sets, daily range): BP systolic 67–119; BP diastolic 45–82
[2017-10-08 05:19] LABS: HEMATOCRIT 38.6 % (42.0-52.0); HEMOGLOBIN 12.8 gm/dL (14.0-18.0); MCH 30.7 pg (26.0-34.0); MCHC 33.1 g/dL (28.0-37.0); MCV 92.9 fL (80.0-100.0); RBC 4.15 mil/uL (4.50-6.00); RDW 14.9 % (10.5-14.5); WBC 6.8 thou/uL (4.0-11.0)
[2017-10-08 05:29] LABS: ALBUMIN 2.2 g/dL (3.4-5.0); CALCIUM 8.5 mg/dL (8.5-10.1); PHOSPHORUS 4.9 mg/dL (2.5-4.9); POTASSIUM 3.1 mmol/L (3.5-5.1)
[2017-10-08 05:30] LABS: CREATININE 2.9 mg/dL (0.7-1.3)
[2017-10-09] VITALS (77 sets, daily range): BP systolic 83–129; BP diastolic 58–87
[2017-10-09 05:34] LABS: ALBUMIN 2.1 g/dL (3.4-5.0); CALCIUM 8.6 mg/dL (8.5-10.1); CREATININE 2.8 mg/dL (0.7-1.3); PHOSPHORUS 3.9 mg/dL (2.5-4.9); POTASSIUM 3.3 mmol/L (3.5-5.1)
[2017-10-09 12:39] LABS: BE(vivo) 5.4 mmol/L (-2 to +3); HCO3 27.9 mmol/L (22.0-26.0); PCO2 33.9 mmHg (35.0-45.0); PO2 97.4 mmHg (80.0-100.0); pH 7.534 (7.360-7.450); sO2 98.1 % (92.0-98.0)
[2017-10-10] VITALS (35 sets, daily range): BP systolic 79–145; BP diastolic 60–111
[2017-10-10 05:00] LABS: HEMATOCRIT 35.7 % (42.0-52.0); HEMOGLOBIN 11.6 gm/dL (14.0-18.0); MCH 30.7 pg (26.0-34.0); MCHC 32.4 g/dL (28.0-37.0); MCV 94.9 fL (80.0-100.0); RBC 3.76 mil/uL (4.50-6.00); RDW 15.2 % (10.5-14.5); WBC 7.5 thou/uL (4.0-11.0)
[2017-10-10 05:08] LABS: CALCIUM 8.4 mg/dL (8.5-10.1); CREATININE 1.9 mg/dL (0.7-1.3); PHOSPHORUS 2.7 mg/dL (2.5-4.9); POTASSIUM 3.4 mmol/L (3.5-5.1)
[2017-10-10 05:22] LABS: BE(vivo) 7.1 mmol/L (-2 to +3); HCO3 31.7 mmol/L (22.0-26.0); PCO2 44.9 mmHg (35.0-45.0); PO2 75.4 mmHg (80.0-100.0); pH 7.467 (7.360-7.450); sO2 95.8 % (92.0-98.0)
[2017-10-10 12:10] LABS: INR 1.1; PROTIME 11.4 Seconds (9.3-11.4)
[2017-10-11] VITALS (29 sets, daily range): BP systolic 82–114; BP diastolic 50–91
[2017-10-11 06:04] LABS: HEMATOCRIT 32.9 % (42.0-52.0); HEMOGLOBIN 10.7 gm/dL (14.0-18.0); MCH 30.6 pg (26.0-34.0); MCHC 32.6 g/dL (28.0-37.0); MCV 93.7 fL (80.0-100.0); RBC 3.51 mil/uL (4.50-6.00); WBC 7.4 thou/uL (4.0-11.0)
[2017-10-11 06:14] LABS: ALBUMIN 1.7 g/dL (3.4-5.0); CREATININE 1.5 mg/dL (0.7-1.3); PHOSPHORUS 2.6 mg/dL (2.5-4.9); POTASSIUM 3.4 mmol/L (3.5-5.1)
[2017-10-12] VITALS (13 sets, daily range): BP systolic 96–113; BP diastolic 56–82
[2017-10-12 05:51] LABS: ALBUMIN 1.9 g/dL (3.4-5.0); CALCIUM 7.6 mg/dL (8.5-10.1); CREATININE 1.5 mg/dL (0.7-1.3); PHOSPHORUS 2.5 mg/dL (2.5-4.9); POTASSIUM 3.5 mmol/L (3.5-5.1)
[2017-10-13 04:45] VITALS: BP 108/68
[2017-10-13 04:49] LABS: HEMATOCRIT 31.9 % (42.0-52.0); HEMOGLOBIN 10.8 gm/dL (14.0-18.0); MCHC 33.8 g/dL (28.0-37.0); MCV 91.8 fL (80.0-100.0); RBC 3.48 mil/uL (4.50-6.00); RDW 14.4 % (10.5-14.5); WBC 7.6 thou/uL (4.0-11.0)
[2017-10-13 05:04] LABS: ALBUMIN 1.9 g/dL (3.4-5.0); CALCIUM 8.1 mg/dL (8.5-10.1); CREATININE 1.3 mg/dL (0.7-1.3); PHOSPHORUS 2.7 mg/dL (2.5-4.9); POTASSIUM 3.1 mmol/L (3.5-5.1)
[2017-10-13 08:40] VITALS: BP 105/66
[2017-10-13 12:10] VITALS: BP 94/63
[2017-10-13 16:50] VITALS: BP 104/70
[2017-10-13 19:45] VITALS: BP 101/53
[2017-10-14 06:38] VITALS: BP 101/57
[2017-10-14 06:38] LABS: ALBUMIN 1.8 g/dL (3.4-5.0); CALCIUM 8.2 mg/dL (8.5-10.1); CREATININE 1.4 mg/dL (0.7-1.3); PHOSPHORUS 2.8 mg/dL (2.5-4.9); POTASSIUM 3.2 mmol/L (3.5-5.1)
[2017-10-14 08:15] VITALS: BP 117/75
[2017-10-14 12:00] VITALS: BP 98/63
[2017-10-14] MEDS ORDERED: FLOMAX0.4 MG PO (12:22)
[2017-10-14] MEDS ORDERED: ELIQUIS5 MG PO (12:22)
[2017-10-14] MEDS ORDERED: CLOPIDOGREL75 MG PO (12:23)
[2017-10-14] MEDS ORDERED: CORLANOR5 MG PO (12:23)
[2017-10-14] MEDS ORDERED: PACERONE 200 M200 M1 PO (12:23)
[2017-10-14] MEDS ORDERED: CARVEDILOL6.25 MG PO (12:24)
[2017-10-14] MEDS ORDERED: COZAAR 50 MG TA50 M1 PO (12:24)
[2017-10-14] MEDS ORDERED: ATORVASTATIN CA40 MG PO (12:24)
[2017-10-14] MEDS ORDERED: PANTOPRAZOLE SO40 M1 PO (12:25)
[2017-10-14] MEDS ORDERED: AUGMENTIN 875-1 EACH PO (12:31)
[2017-10-14 16:15] VITALS: BP 97/65
[2017-10-14 19:16] VITALS: BP 93/54
[2017-10-15] VITALS (7 sets, daily range): BP systolic 89–109; BP diastolic 58–71
== END 2017-10-15 15:19 | disposition home or self-care (01) | DRG 246 ==
LOC: ER 15:13 → EROBS 16:07 → 2N 16:07 → ICU 10-04 23:26 → 3W 10-08 16:21 → ICU 10-08 16:32 → 2N 10-12 09:09
PROVIDERS: Emergency Medicine; Family Medicine; Hospitalist; Internal Medicine Cardiovascular Disease; Internal Medicine Nephrology; Internal Medicine Pulmonary Disease
DX: I21.4 Non-ST elevation (NSTEMI) myocardial infarction (principal); J96.00 Acute respiratory failure, unspecified whether with hypoxia or hypercapnia; I49.01 Ventricular fibrillation; J69.0 Pneumonitis due to inhalation of food and vomit; K72.00 Acute and subacute hepatic failure without coma; R57.0 Cardiogenic shock; N17.0 Acute kidney failure with tubular necrosis; I42.9 Cardiomyopathy, unspecified; I47.2 Ventricular tachycardia; E87.2 Acidosis; N39.0 Urinary tract infection, site not specified; D68.59 Other primary thrombophilia; E87.0 Hyperosmolality and hypernatremia; K92.2 Gastrointestinal hemorrhage, unspecified; J98.11 Atelectasis; I50.22 Chronic systolic (congestive) heart failure; E78.5 Hyperlipidemia, unspecified; J45.909 Unspecified asthma, uncomplicated; I25.10 Atherosclerotic heart disease of native coronary artery without angina pectoris; N28.9 Disorder of kidney and ureter, unspecified; R33.9 Retention of urine, unspecified; B95.2 Enterococcus as the cause of diseases classified elsewhere; I11.0 Hypertensive heart disease with heart failure; E83.39 Other disorders of phosphorus metabolism; E87.6 Hypokalemia; R53.81 Other malaise; Z82.49 Family history of ischemic heart disease and other diseases of the circulatory system; Z79.82 Long term (current) use of aspirin; Z79.899 Other long term (current) drug therapy; Z87.891 Personal history of nicotine dependence
CPT/HCPCS: 10078; 10081; 10203; 10797; 27000; 50455; 50478; 51620; 85026

== ENCOUNTER → 2017-10-20 | Outpatient (CLI) | payer OTHER | LOC: RAD 12:01 | DX: R06.00 Dyspnea, unspecified (principal) ==

== ENCOUNTER → 2018-01-03 | Outpatient (CLI) | payer OTHER ==
--- NOTE | ~2018-01-03 | 2DMMODE ---
[address] [address] D/M-MODE ECHOCARDIOGRAM Name: LISAPIERCE PIETER Room #: [facility]#: [id number] Admission: 01/03/18 Attend Phys: Roland Smith Discharge: Date of : 53 Date of Service: 01/03/18 1324 Report #: [id number] THIS REPORT FOR: //name// APPROVED REPORT Study performed: 01/03/2018 12:47:47 EXAM: Comprehensive 2D, Doppler, and color-flow Echocardiogram Patient Location: Out-Patient Room #: Echo lab 2 Status: routine BSA: 2.20 BP: 126/80 mmHg Other Information Study Quality: Good Indications Cardiomyopathy Hypertension/HDD 2D Dimensions IVC: 19.00 mm Tricuspid Valve TR Peak Edis.: 3.71 m/s TR Peak Gr.: 54.96 mmHg PA Pressure: 65.00 mmHg Left Ventricle Left ventricle is dilated. There is global hypokinesis of the left ventricle. Mild concentric left ventricular hypertrophy. Left ventricular ejection fraction is severely decreased. LVEF is 20-25%. Right Ventricle Right ventricle is dilated. Right ventricle is mildly hypokinetic. Atria Left atrium is dilated. Right atrium is dilated. Aortic Valve The aortic valve is normal in structure. [address] [address] D/M-MODE ECHOCARDIOGRAM Name: PIERCE GONZALEZ PIETER Room #: REG [place]#: [id number] Admission: 01/03/18 Attend Phys: Roland Smith Discharge: Date of : 53 Date of Service: 01/03/181323 Report #: [id number] Mitral Valve The mitral valve is normal in structure. Mild to moderate mitral regurgitation. Tricuspid Valve The tricuspid valve is normal in structure. There is mild-moderate TR. There is moderate pulmonary hypertension. Estimated PAP 65 mmHg. Pulmonic Valve The pulmonary valve is normal in structure. Great Vessels The aortic root is normal in size. IVC is dilated and collapses <50% with inspiration. Pericardium There is no pericardial effusion. <Conclusion> Left ventricle is dilated. Mild concentric left ventricular hypertrophy. Left ventricular ejection fraction is severely decreased. Right ventricle is dilated. Left atrium is dilated. Right atrium is dilated. The aortic valve is normal in structure. Mild to moderate mitral regurgitation. There is mild-moderate TR. There is moderate pulmonary hypertension. Estimated PAP 65 mmHg. <ELECTRONICALLY SIGNED> By: Jevon Choi MD 01/03/184 23 23 Jevon Choi MD /INF
== END ==
LOC: CV 12:23
DX: I08.1 Rheumatic disorders of both mitral and tricuspid valves (principal); I27.20 Pulmonary hypertension, unspecified

== ENCOUNTER 2018-01-16 09:10 | Observation (INO) | payer OTHER ==
[~2018-01-16] VITALS: Ht 175.3 cm; Wt 106.6 kg
--- NOTE | ~2018-01-16 | P ---
[facility] [place] [address] PROCEDURE REPORT Name: PIERCE GONZALEZ Room #: 200-I [facility] Shireen Sullivan#: [id number] Admission: 01/16/18 Attend Phys: Roland Smith MD Discharge: 01/17/18 Date of : 53 Report #: [id number] THIS REPORT FOR: //name// CC: Jevon Bullockerin LeonBallard DATE OF SERVICE: 01/16/2018 PREOPERATIVE DIAGNOSES: 1. Ischemic cardiomyopathy. 2. Left bundle-branch block. 3. [place] [employer] functional class 2-3 heart failure symptoms. HISTORY: The patient is a 62-year-old with history of ischemic cardiomyopathy, status post recent CO who has left bundle-branch block and [place] [employer] functional class 2-3 heart failure symptoms, who is here for biventricular ICD implantation for primary prevention of sudden cardiac . ANESTHESIA: The patient underwent MAC anesthesia with no anesthesia related complications. DESCRIPTION OF PROCEDURE: The patient underwent informed consent. We discussed the details of the procedure including the risks, which include but not limited to bleeding, infection, vascular damage, cardiac perforation and pneumothorax. He understood these risks and is willing to proceed. The patient was brought to the EP laboratory in a fasting and unsedated state, received IV antibiotics. He underwent a venogram showing patency of left axillary vein. Next, I injected lidocaine at the incision site. An incision was made, pocket was created over the prepectoral fascia and access was obtained 3 times of left axillary vein using the extrathoracic approach with sheaths positioned using the modified Seldinger technique. Next, under fluoroscopy leads were positioned in the right ventricular apex and right atrial appendage both with adequate pacing and sensing thresholds and these leads were sutured to the prepectoral fascia using Ethibond. Next, a coronary guide sheath was placed into the right atrium and wire was advanced into the coronary sinus with ease. However, the sheath would not advance into the CS os. There was a tortuosity at the coronary sinus ostium that was best noted in an CARDONA view where there was a 90 degree turn on the wire at the coronary sinus ostium. To bypass this, I placed an inner sheath and was able to advance this over the wire into the coronary sinus and then I was able to advance the outer sheath into the coronary sinus. Using contrast via the sheath, I was able to demonstrate there was a nice posterolateral branch in which a quadripolar lead was easily positioned in. There was good pacing and sensing thresholds throughout the lead in this vessel. The sheath was split and the lead remained in position. The coronary [facility] [address] [place] [address] PROCEDURE REPORT Name: PIERCE GONZALEZ PIETER Room #: 200-I [facility] Shireen Sullivan#: [id number] Admission: 01/16/18 Attend Phys: Roland Smith MD Discharge: 01/17/18 Date of : 53 Report #: [id number] sinus lead was sutured to the prepectoral fascia and then the device was connected to the leads and tested and found to be functioning normally. The pocket was irrigated with vancomycin and then the pocket was closed in 3 layers using 2-0 for the deep layer, 3-0 for the mid layer, 4-0 for the subcuticular layer and surgical glue was placed to the outer skin layer. The patient awoke neurologically and hemodynamically intact. No complications and no significant bleeding. The implanted device is [employer] model # [id number], serial #[id number]. Atrial lead was [employer] model 2088TC, 52 cm, serial #[id number] with a P-wave of 2.1 millivolts, pacing impedance of 357 ohms and the pacing threshold 0.6 volts at 0.5 milliseconds. The RV lead was a [employer] model #7120Q, 65 cm, serial #[id number]. This lead demonstrated a R-wave of 25 millivolts, pacing impedance of 590 ohms and pacing threshold of 0.6 volts at 0.5 milliseconds. The LV lead was [employer] model #1458Q, 86 cm, serial #[id number]. This lead demonstrated a R-wave of 17.7 millivolts, pacing impedance of 660 ohms and a pacing threshold of 0.6 volts at 0.5 milliseconds and then M3-P4 pacing configuration. The device was programmed to the DDD 60-120 mode. The VF zone was set at greater than 220 beats per minute with ATP while charging followed by max output shocks. The VT zone was set at 180 beats per minute with 3 rounds of bursts followed by 3 rounds of ramp followed by max output shocks. CONCLUSIONS: 1. Successful biventricular ICD implantation. 2. Satisfactory atrial right ventricular and left ventricular pacing and sensing thresholds. By: [id number] Roland Smith MD /nt
--- NOTE | ~2018-01-16 | D ---
[facility] [place] [address] DISCHARGE SUMMARY Name: PIERCE GONZALEZ PIETER Room #: 200-I [facility] Laurie#: [id number] Admission: 01/16/18 Attend Phys: Roland Smith MD Discharge: 01/17/18 Date of : 53 Report #: [id number] THIS REPORT FOR: //name// CC: Jevon Ballard DIAGNOSES: 1. Ischemic cardiomyopathy. 2. Coronary artery disease. 3. Left bundle-branch block. 4. 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 HISTORY: The patient is a 62-year-old with history of ischemic cardiomyopathy, who has been on optimal medical therapy for greater than 3 months and is here for an elective biventricular ICD implantation. The patient underwent successful device implantation. The procedure was without complications. HOSPITAL COURSE: He was monitored overnight. The following morning, the patient was doing well. He denied chest pain, shortness of breath, PND, orthopnea. PHYSICAL EXAMINATION: HEART: Regular rate and rhythm. LUNGS: Clear to auscultation bilaterally. ABDOMEN: Soft, nontender. EXTREMITIES: No clubbing, cyanosis, edema and the incision was healing nicely with no signs of bleeding or hematoma. On telemetry, he remained in sinus rhythm. Device interrogation showed normal device function. Chest x-ray showed normal lead position with no pneumothorax. As such, he was deemed stable for discharge home. He was discharged on his same outpatient medications. He is not on an RADHA or ARB due to symptomatic hypotension on these medications. He was instructed to resume his Eliquis on Tuesday. He will follow up in 7-10 days for a site check. <ELECTRONICALLY SIGNED> By: Roland Smith MD 01/19/18 1110 0801 0845 Roland Smith MD /nt
[2018-01-16 10:06] LABS: ABSOLUTE NEUTROPHILS 2.1 thou/uL (1.4-8.2); BASOPHILS 0.9 % (0.0-2.0); EOSINOPHILS 5.4 % (0.0-3.0); HEMATOCRIT 36.7 % (42.0-52.0); HEMOGLOBIN 12.1 gm/dL (14.0-18.0); LYMPHOCYTES 29.4 % (24.0-44.0); MCH 30.3 pg (26.0-34.0); MCHC 32.9 g/dL (28.0-37.0); MCV 92.1 fL (80.0-100.0); MONOCYTES 10.2 % (1.0-8.0); PLATELET COUNT 232 thou/uL (150-400); POLYS 54.1 % (36.0-66.0); RBC 3.99 mil/uL (4.50-6.00); RDW 18.3 % (10.5-14.5); WBC 3.9 thou/uL (4.0-11.0)
[2018-01-16 10:13] VITALS: BP 114/76
[2018-01-16 10:14] LABS: CALCIUM 9.4 mg/dL (8.5-10.1); CREATININE 1.6 mg/dL (0.7-1.3); POTASSIUM 4.5 mmol/L (3.5-5.1)
[2018-01-16 10:20] LABS: APTT 26.2 Seconds (24.5-32.8); INR 1.1; PROTIME 11.5 Seconds (9.3-11.4)
[2018-01-16 10:21] LABS: ALBUMIN 3.5 g/dL (3.4-5.0); TOTAL BILIRUBIN 0.7 mg/dL (<0.1-1.0); TOTAL PROTEIN 8.2 g/dL (6.4-8.2)
[2018-01-16 14:33] VITALS: BP 138/99
[2018-01-16 19:40] VITALS: BP 122/76
[2018-01-16 23:09] VITALS: BP 111/67
[2018-01-17 04:44] VITALS: BP 107/70
[2018-01-17 07:08] VITALS: BP 130/76
[2018-01-17 10:17] VITALS: BP 130/76
== END 2018-01-17 11:30 | disposition home or self-care (01) ==
LOC: CATH 09:10 → 2N 10:54 → CATH 14:21 → 2N 01-17 11:30
PROVIDERS: Internal Medicine Cardiovascular Disease
DX: I25.5 Ischemic cardiomyopathy (principal); I44.7 Left bundle-branch block, unspecified; I21.4 Non-ST elevation (NSTEMI) myocardial infarction; I25.10 Atherosclerotic heart disease of native coronary artery without angina pectoris; I11.0 Hypertensive heart disease with heart failure; I50.23 Acute on chronic systolic (congestive) heart failure; E78.5 Hyperlipidemia, unspecified; R06.00 Dyspnea, unspecified; J45.909 Unspecified asthma, uncomplicated; I95.9 Hypotension, unspecified; Z95.5 Presence of coronary angioplasty implant and graft; Z72.89 Other problems related to lifestyle

== ENCOUNTER → 2018-12-04 | Outpatient (CLI) | payer OTHER ==
--- NOTE | 2018-12-04 15:17 | 2DMMODE ---
[facility] [employer] [place] [address] 2 D/M-MODE ECHOCARDIOGRAM Name: LISAPIERCE PIETER Room #: REG [facility]#: [id number] ������������� Admission: 12/04/18 ������������� Attend Phys: Jevon Choi MD Discharge: ��� ������������� ��� Date of : 53 Date of Service: 12/04/18 1516 �� Report #: [id number] �������� ��������������������������������������������[id number] THIS REPORT FOR: //name// APPROVED REPORT Study performed: 12/04/2018 14:15:13 EXAM: Comprehensive 2D, Doppler, and color-flow Echocardiogram Patient Location: Out-Patient Room #: Echo lab 2 Status: routine BSA: 2.15 HR: 76 bpm BP: 120/84 mmHg Rhythm: Pacemaker Other Information Study Quality: Good Indications Cardiomyopathy Hypertension/HDD 2D Dimensions RVDd: 44.32 mm IVSd: 13.54 (7-11mm) LVOT Diam: 22.75 (18-24mm) LVDd: 64.17 mm PWd: 13.77 (7-11mm) Ascending Ao: 32.88 (22-36mm) LVDs: 61.03 (25-40mm) Aortic Root: 26.59 mm IVC: 12.00 mm Volumes Left Atrial Volume (Systole) Single Plane 4CH: 63.27 mL Single Plane 2CH: 81.45 mL LA ESV Index: 37.00 mL/m2 Aortic Valve LVOT Max P.96 mmHg LVOT Max V: 0.99 m/s Mitral Valve E/A Ratio: 0.6 MV Decel. Time: 241.92 ms MV E Max Edis.: 0.67 m/s MV A Edis.: 1.08 m/s [facility] [address] [address] 2 D/M-MODE ECHOCARDIOGRAM Name: PIERCE GONZALEZ Room #: REG [facility]#: [id number] ������������� Admission: 12/04/18 ������������� Attend Phys: Jevon Choi MD Discharge: ��� ������������� ��� Date of : 53 Date of Service: 12/04/18 1516 �� Report #: [id number] �������� ��������������������������������������������[id number] MV PHT: 70.16 ms IVRT: 124.57 ms Pulmonary Valve PV Peak Edis.: 0.76 m/s PV Peak Gr.: 2.29 mmHg Pulmonary Vein P Vein S: 0.43 m/s P Vein A: 0.24 m/s P Vein D: 0.34 m/s P Vein A Dur.: 110.7 msec P Vein S/D Ratio: 1.26 Tricuspid Valve TR Peak Edis.: 2.55 m/s TR Peak Gr.: 26.07 mmHg PA Pressure: 31.00 mmHg Left Ventricle Left ventricle is dilated. Mild concentric left ventricular hypertrophy. Left ventricular systolic function is moderate to severely decreased. LVEF is 35%. Right Ventricle The right ventricle is normal size. The right ventricular systolic function is normal. Device lead is present in the right ventricle. Atria Left atrium is dilated. Right atrium is dilated. Device lead is present in the right atrium. Aortic Valve The aortic valve is normal in structure. Aortic valve is calcified. Mild aortic regurgitation. There is no aortic valvular stenosis. Mitral Valve The mitral valve is normal in structure. Mild mitral regurgitation. No evidence of mitral valve stenosis. Tricuspid Valve The tricuspid valve is normal in structure. Trace tricuspid regurgitation. Pulmonic Valve The pulmonary valve is normal in structure. Trace pulmonic regurgitation. [facility] [address] [place] [address] 2 D/M-MODE ECHOCARDIOGRAM Name: PIERCE GONZALEZ Room #: REG [facility]#: [id number] ������������� Admission: 12/04/18 ������������� Attend Phys: Jevon Choi MD Discharge: ��� ������������� ��� Date of : 53 Date of Service: 12/04/18 1516 �� Report #: [id number] �������� ��������������������������������������������[id number] [employer] The aortic root is normal in size. IVC is normal in size and collapses >50% with inspiration. Pericardium There is no pericardial effusion. <Conclusion> Left ventricle is dilated. Mild concentric left ventricular hypertrophy. Left ventricular systolic function is moderate to severely decreased. LVEF is 35%. The right ventricle is normal size. Device lead is present in the right ventricle. Left atrium is dilated. Right atrium is dilated. Device lead is present in the right atrium. Mild aortic regurgitation. Mild mitral regurgitation. Trace tricuspid regurgitation. ��������������������������������������������� <ELECTRONICALLY SIGNED> ���������������������������������������� By: Jevon Choi MD ��������������������������������������������� 12/04/18 1516 [id number] Jevon Choi MD /INF
== END ==
LOC: CV 11:29
DX: I08.0 Rheumatic disorders of both mitral and aortic valves (principal); I11.9 Hypertensive heart disease without heart failure; I25.10 Atherosclerotic heart disease of native coronary artery without angina pectoris

== ENCOUNTER → 2019-12-25 | Outpatient (CLI) | payer OTHER | LOC: SJCVCIMAG 12:18 | DX: I25.10 Atherosclerotic heart disease of native coronary artery without angina pectoris (principal); I25.5 Ischemic cardiomyopathy; I10 Essential (primary) hypertension; E78.00 Pure hypercholesterolemia, unspecified; E78.5 Hyperlipidemia, unspecified; Z95.810 Presence of automatic (implantable) cardiac defibrillator ==

== ENCOUNTER → 2020-08-27 | Outpatient (CLI) | payer OTHER ==
[2020-08-27 12:34] LABS: ABSOLUTE NEUTROPHILS 1.8 thou/uL (1.4-8.2); BASOPHILS 0.4 % (0.0-2.0); EOSINOPHILS 2.3 % (0.0-3.0); HEMATOCRIT 40.2 % (42.0-52.0); HEMOGLOBIN 13.1 gm/dL (14.0-18.0); LYMPHOCYTES 34.7 % (24.0-44.0); MCH 32.7 pg (26.0-34.0); MCHC 32.7 g/dL (28.0-37.0); MONOCYTES 7.6 % (1.0-8.0); PLATELET COUNT 216 thou/uL (150-400); RBC 4.02 mil/uL (4.50-6.00); RDW 13.5 % (10.5-14.5); URINE BILIRUBIN NEGATIVE (Negative); URINE BLOOD NEGATIVE (Negative); URINE CLARITY CLEAR; URINE COLOR YELLOW; URINE GLUCOSE-RANDOM* NEGATIVE (Negative); URINE KETONES NEGATIVE (Negative); URINE LEUKOCYTES-REFLEX NEGATIVE (Negative); URINE NITRITE-REFLEX NEGATIVE (Negative); URINE PROTEIN (DIPSTICK) NEGATIVE (Negative); URINE SPECIFIC GRAVITY 1.025 (1.005-1.035); URINE UROBILINOGEN 0.2 E.U./dl (0.2-1.0); WBC 3.3 thou/uL (4.0-11.0)
[2020-08-27 13:09] LABS: ALBUMIN 3.6 g/dL (3.4-5.0); ANION GAP 7 mmol/L (7-16); BUN 19 mg/dL (7-18); CALCIUM 9.5 mg/dL (8.5-10.1); CHLORIDE 105 mmol/L (98-107); CHOLESTEROL 148 mg/dL (<200); CO2 32 mmol/L (21-32); CREATININE 1.3 mg/dL (0.7-1.3); GLUCOSE 89 mg/dL (74-106); HDL CHOLESTEROL 57 mg/dL (>40); LDL CHOLESTEROL 72 mg/dL (<100); POTASSIUM 4.7 mmol/L (3.5-5.1); SGOT 17 U/L (15-37); SGPT 21 U/L (30-65); SODIUM 144 mmol/L (136-145); TC:HDL 2.6 Ratio (Not establshd); TOTAL BILIRUBIN 0.4 mg/dL (0.2-1.0); TOTAL PROTEIN 7.7 g/dL (6.4-8.2); TRIGLYCERIDE 95 mg/dL (<150); VLDL 19 mg/dL (<40)
== END ==
LOC: LAB 11:39
PROVIDERS: ATTEND Family Medicine
DX: Z00.00 Encounter for general adult medical examination without abnormal findings (principal)

== ENCOUNTER → 2020-11-24 | Outpatient (CLI) | payer OTHER ==
[2020-11-24 11:12] LABS: ALBUMIN 3.5 g/dL (3.4-5.0); ANION GAP 8 mmol/L (7-16); BUN 23 mg/dL (7-18); CALCIUM 9.3 mg/dL (8.5-10.1); CHLORIDE 105 mmol/L (98-107); CHOLESTEROL 134 mg/dL (<200); CO2 26 mmol/L (21-32); CREATININE 1.3 mg/dL (0.7-1.3); GLUCOSE 131 mg/dL (74-106); HDL CHOLESTEROL 61 mg/dL (>40); LDL CHOLESTEROL 61 mg/dL (<100); POTASSIUM 4.7 mmol/L (3.5-5.1); SGOT 24 U/L (15-37); SGPT 21 U/L (30-65); SODIUM 139 mmol/L (136-145); TC:HDL 2.2 Ratio (Not establshd); TOTAL BILIRUBIN 0.5 mg/dL (0.2-1.0); TOTAL PROTEIN 8.4 g/dL (6.4-8.2); TRIGLYCERIDE 62 mg/dL (<150); VLDL 12 mg/dL (<40)
== END ==
LOC: LAB 09:51
PROVIDERS: ATTEND Internal Medicine Cardiovascular Disease
DX: I25.10 Atherosclerotic heart disease of native coronary artery without angina pectoris (principal)

== ENCOUNTER → 2021-03-09 | Outpatient (CLI) | payer OTHER | LOC: SJCVCIMAG 10:48 | PROVIDERS: ATTEND Internal Medicine Cardiovascular Disease | DX: I10 Essential (primary) hypertension (principal); I25.10 Atherosclerotic heart disease of native coronary artery without angina pectoris; I25.5 Ischemic cardiomyopathy ==

== ENCOUNTER 2021-03-26 09:59 | Emergency (ER) | payer OTHER ==
[~2021-03-26] VITALS: Ht 175.3 cm; Wt 120.2 kg
[2021-03-26] MEDS ORDERED: AZITHROMYCIN500 MG PO (11:15)
[2021-03-26] MEDS ORDERED: PREDNISONE 20 M20 MG PO (11:15)
[2021-03-26 11:49] VITALS: BP 134/79
== END 2021-03-26 11:52 | disposition home or self-care (01) ==
LOC: ER 09:59
DX: J18.9 Pneumonia, unspecified organism (principal); J45.909 Unspecified asthma, uncomplicated; I25.10 Atherosclerotic heart disease of native coronary artery without angina pectoris; I42.9 Cardiomyopathy, unspecified; I13.0 Hypertensive heart and chronic kidney disease with heart failure and stage 1 through stage 4 chronic kidney disease, or unspecified chronic kidney disease; I50.9 Heart failure, unspecified; N18.9 Chronic kidney disease, unspecified; E78.5 Hyperlipidemia, unspecified; Z79.82 Long term (current) use of aspirin; Z79.818 Long term (current) use of other agents affecting estrogen receptors and estrogen levels; Z79.51 Long term (current) use of inhaled steroids; Z79.899 Other long term (current) drug therapy; Z20.822 Contact with and (suspected) exposure to COVID-19

== ENCOUNTER → 2021-08-13 | Outpatient (CLI) | payer OTHER ==
[~2021-08-13] MED LIST changes: +AZITHROMYCIN500 MG PO; +PREDNISONE 20 M20 MG PO
== END ==
LOC: MRI 08-05 11:23
PROVIDERS: ATTEND Orthopaedic Surgery
DX: S83.241A Other tear of medial meniscus, current injury, right knee, initial encounter (principal); M71.21 Synovial cyst of popliteal space [Baker], right knee; M25.461 Effusion, right knee; M25.561 Pain in right knee; X58.XXXA Exposure to other specified factors, initial encounter; Y93.89 Activity, other specified; Y92.89 Other specified places as the place of occurrence of the external cause; Y99.8 Other external cause status

== ENCOUNTER → 2021-09-09 | Outpatient (CLI) | payer OTHER ==
[2021-09-09 11:51] LABS: URINE BILIRUBIN NEGATIVE (Negative); URINE BLOOD NEGATIVE (Negative); URINE CLARITY CLEAR; URINE COLOR YELLOW; URINE GLUCOSE-RANDOM* NEGATIVE (Negative); URINE KETONES NEGATIVE (Negative); URINE LEUKOCYTES-REFLEX NEGATIVE (Negative); URINE NITRITE-REFLEX NEGATIVE (Negative); URINE PROTEIN (DIPSTICK) NEGATIVE (Negative); URINE SPECIFIC GRAVITY >= 1.030 (1.005-1.035); URINE UROBILINOGEN 0.2 E.U./dl (0.2-1.0)
[2021-09-09 11:54] LABS: HEMATOCRIT 39.2 % (42.0-52.0); HEMOGLOBIN 13.1 gm/dL (14.0-18.0); MCH 32.9 pg (26.0-34.0); MCHC 33.3 g/dL (28.0-37.0); PLATELET COUNT 184 thou/uL (150-400); RBC 3.96 mil/uL (4.50-6.00); RDW 13.9 % (10.5-14.5); WBC 2.8 thou/uL (4.0-11.0)
[2021-09-09 12:23] LABS: ALBUMIN 3.4 g/dL (3.4-5.0); ANION GAP 6 mmol/L (7-16); BUN 20 mg/dL (7-18); CALCIUM 9.4 mg/dL (8.5-10.1); CHLORIDE 106 mmol/L (98-107); CHOLESTEROL 133 mg/dL (<200); CO2 30 mmol/L (21-32); CREATININE 1.2 mg/dL (0.7-1.3); GLUCOSE 112 mg/dL (74-106); HDL CHOLESTEROL 55 mg/dL (>40); LDL CHOLESTEROL 64 mg/dL (<100); SGOT 15 U/L (15-37); SGPT 25 U/L (30-65); SODIUM 142 mmol/L (136-145); TC:HDL 2.4 Ratio (Not establshd); TOTAL BILIRUBIN 0.4 mg/dL (0.2-1.0); TOTAL PROTEIN 7.8 g/dL (6.4-8.2); TRIGLYCERIDE 70 mg/dL (<150); VLDL 14 mg/dL (<40)
[2021-09-09 15:20] LABS: ABSOLUTE NEUTROPHILS 1.2 thou/uL (1.4-8.2); ATYPICAL LYMPHS 6 %
== END ==
LOC: LAB 11:01
PROVIDERS: ATTEND Family Medicine
DX: I25.10 Atherosclerotic heart disease of native coronary artery without angina pectoris (principal); I42.9 Cardiomyopathy, unspecified

== ENCOUNTER → 2021-10-01 | Day surgery (SDC) | payer OTHER ==
[~2021-10-01] VITALS: Ht 175.3 cm; Wt 123.6 kg
[~2021-10-01] MED LIST changes: +CARVEDILOL6.25 M1 PO; +LIPITOR40 MG PO; +SPIRONOLACTONE25 MG PO
[2021-10-01 08:20] VITALS: BP 132/77
[2021-10-01 11:37] VITALS: BP 132/77
--- NOTE | 2021-10-01 12:02 | O ---
[facility] [place] [address] OPERATIVE REPORT Name: PIERCE GONZALEZ Room #: REG [facility].#: [id number] Admission: 10/01/21 Attend Phys: Mandeep Hong MD Discharge: Date of : 53 Report #: [id number] THIS REPORT FOR: cc: Jose Manuel Ballard MD, Neal A. 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 PROCEDURE: Right knee arthroscopy with debridement of medial meniscus tear and debridement of chondromalacia. SURGEON: Mandeep Hong MD INDICATIONS: This 66-year-old gentleman has moderate chronic right knee pain. Symptoms advanced over the past several months. Clinical exam and MRI study confirmed some chronic degenerative tearing of the medial meniscus as well as mild chondromalacia in all 3 compartments, most severe in the medial side. We have discussed treatment options and he has elected to go ahead with arthroscopic debridement. DESCRIPTION OF PROCEDURE: The patient was taken to the operating room where he was placed under general anesthesia. Prophylactic intravenous antibiotics were administered. The right knee and leg were meticulously prepped and draped. A thigh tourniquet was applied and inflated to 350 mmHg. A lateral suprapatellar inflow cannula was placed. The knee was inflated with normal saline. The arthroscope and shaver were introduced through parapatellar tendon approaches. The various compartments were sequentially visualized and documented with arthroscopic photography. The medial compartment revealed moderate chondromalacia damage on both the medial femoral condyle and the medial tibial plateau. This was grade II, without any areas of exposed subchondral bone. Very limited gentle debridement of the irregular loose fragmented cartilage was performed. There was some loose debris in the posteromedial corner, which was evacuated. The medial meniscus revealed moderate diffuse degenerative tearing, mostly in the posteromedial corner. This involved about the inner one-half of the meniscus, which was rough and irregular. This area of meniscus was debrided with a small shaver. The outer one-half of the meniscus was in better shape and appeared to be stable and functional and was left in place. The more anterior portion of the meniscus was in better shape and did not require further debridement. [address] [address] OPERATIVE REPORT Name: LISAPIERCE PIETER Room #: REG [facility].#: [id number] Admission: 10/01/21 Attend Phys: Mandeep Hong MD Discharge: Date of : 53 Report #: [id number] The intercondylar notch revealed the cruciate ligaments to be present and functioning normally. There was some synovial hypertrophy and some bony spurring, which was debrided. No other abnormalities in the notch were identified. The lateral compartment revealed similar, but less severe chondromalacia on the lateral femoral condyle and only minor damage on the lateral tibial plateau. The lateral meniscus showed some fraying along its inner margin, which was gently debrided, but there was no major or more significant cartilage or meniscus damage in this area. The patellofemoral articulation revealed grade II chondromalacia rather diffusely over the patellar surface and less severe damage in the trochlear region on the femur. The patella seemed to be well positioned and tracked nicely. The areas of cartilage damage were very gently debrided. There was some synovial hypertrophy and a few loose bodies in the suprapatellar pouch, which were removed. At this point, the entire knee was copiously irrigated. All excess fluid was evacuated from the knee. The knee was then injected with 80 mg of Depo-Medrol and 20 mL of 0.5% Marcaine with epinephrine. The puncture sites were closed with interrupted nylon suture. A sterile dressing was applied. The patient was awakened and returned to recovery room in good condition. <ELECTRONICALLY SIGNED> By: Mandeep Hong MD 10/01/21 1202 1030 1040 Mandeep Hong MD /nt
== END | disposition home or self-care (01) ==
LOC: OR 06:46
PROVIDERS: ATTEND Orthopaedic Surgery
DX: M23.231 Derangement of other medial meniscus due to old tear or injury, right knee (principal); M94.261 Chondromalacia, right knee; I13.0 Hypertensive heart and chronic kidney disease with heart failure and stage 1 through stage 4 chronic kidney disease, or unspecified chronic kidney disease; N18.9 Chronic kidney disease, unspecified; I50.9 Heart failure, unspecified; I25.10 Atherosclerotic heart disease of native coronary artery without angina pectoris; J45.909 Unspecified asthma, uncomplicated; E78.5 Hyperlipidemia, unspecified; I25.5 Ischemic cardiomyopathy; N40.0 Benign prostatic hyperplasia without lower urinary tract symptoms; Z98.890 Other specified postprocedural states; Z79.899 Other long term (current) drug therapy; Z87.442 Personal history of urinary calculi; Z20.822 Contact with and (suspected) exposure to COVID-19
CPT/HCPCS: 50010; 50101; 50405; 56526; 57103; 57180; 58577; 58589; 62110; 62900; 70005